=== PATIENT | male | born 1970 | race Hispanic/Latino ===

== ENCOUNTER 2020-08-04 19:09 | Emergency (ER) | payer OTHER ==
[~2020-08-04] VITALS: Ht 177.8 cm; Wt 102.1 kg
[2020-08-04 19:09] VITALS: TEMP 98.2
[~2020-08-04 19:09] MED LIST: LISI20TA11 PO
[2020-08-04 20:03] LABS: PLATELET COUNT 204 K/uL (142-355)
[2020-08-04 20:10] LABS: POTASSIUM 3.8 mmol/L (3.6-5.2)
[2020-08-04 21:17] VITALS: BP 191/102
== END 2020-08-04 21:57 | disposition short-term general hospital (02) ==
LOC: ED 19:19
PROVIDERS: Family Medicine
PROC: 0T9B70Z Drainage of Bladder with Drainage Device, Via Natural or Artificial Opening (ICD-10-PCS; principal; 2020-08-04)
DX: S12.490A Other displaced fracture of fifth cervical vertebra, initial encounter for closed fracture (principal); V58.0XXA Driver of pick-up truck or van injured in noncollision transport accident in nontraffic accident, initial encounter; Y92.89 Other specified places as the place of occurrence of the external cause
CPT/HCPCS: 36415; 51702; 73200; 80053; 85027; 96360; 96365; 96366; 96375; 96376; 99285; J1885; J3490

== ENCOUNTER 2020-08-18 13:22 | Outpatient (CLI) | payer OTHER | END 2020-08-18 19:05 | disposition home or self-care (01) | LOC: CT 13:22 | DX: I65.02 Occlusion and stenosis of left vertebral artery (principal) | CPT/HCPCS: Q9963 ==

== ENCOUNTER 2022-12-17 13:44 | Outpatient (CLI) | payer OTHER | END 2022-12-17 23:22 | disposition home or self-care (01) | LOC: CT 13:44 | PROVIDERS: ATTEND Nurse Practitioner | DX: Z13.6 Encounter for screening for cardiovascular disorders (principal) ==